=== PATIENT | male | born 1960 | race Asian ===

== ENCOUNTER 2018-12-23 12:01 | Observation (INO) | payer OTHER | END 2018-12-26 16:23 | disposition home or self-care (01) | LOC: ED 12:01 → DU 18:00 → ED 12:01 → DU 12-26 16:23 → ED 12:01 → DU 18:00 ==

== ENCOUNTER 2019-01-05 23:34 | Emergency (ER) | payer OTHER ==
[~2019-01-05] VITALS: Ht 152.4 cm; Wt 52.2 kg
[~2019-01-05 23:34] MED LIST: ALLOPURINOL100 MG PO; ATORVASTATIN CA10 M1 PO; D3 DOTS2000 UNIT PO; LOSARTAN POTASS25 M1 PO; METFORMIN HYDR500 M1 PO; TAMSULOSIN HYD0.4 M1 PO
[2019-01-05 23:37] VITALS: Ht 152.4 cm; Wt 52.2 kg
[2019-01-06 01:23] VITALS: BP 136/77
== END 2019-01-06 01:23 | disposition home or self-care (01) ==
LOC: ED 23:34
DX: S39.012A Strain of muscle, fascia and tendon of lower back, initial encounter (principal); R07.89 Other chest pain; I10 Essential (primary) hypertension; E11.9 Type 2 diabetes mellitus without complications; M10.9 Gout, unspecified; N40.0 Benign prostatic hyperplasia without lower urinary tract symptoms; X58.XXXA Exposure to other specified factors, initial encounter; Y93.89 Activity, other specified; Y92.89 Other specified places as the place of occurrence of the external cause; Y99.8 Other external cause status
CPT/HCPCS: 36415; J1885

== ENCOUNTER 2019-04-09 16:36 | Inpatient (IN) | payer OTHER ==
[~2019-04-09] VITALS: Ht 152.4 cm; Wt 48.5 kg
[~2019-04-09 16:36] MED LIST changes: +FLOMAX0.4 MG PO; -TAMSULOSIN HYD0.4 M1 PO
[2019-04-09 16:42] VITALS: Ht 152.4 cm; Wt 48.5 kg
[2019-04-09 17:33] LABS: BASOPHIL % 0.6 % (0-2); PLATELET COUNT 374 x10^3mcL (130-400); RED CELL DISTRIBUTION WIDTH 14.3 % (11.5-14.5)
[2019-04-09 17:42] LABS: CALCIUM 9.1 mg/dL (8.5-10.1); CARBON DIOXIDE 30.2 mmol/L (21-32); CHLORIDE SERUM 103 mmol/L (98-107); CREATININE SERUM 0.9 mg/dL (0.7-1.3); GFR1 > 60 mL/min; GLUCOSE SERUM 167 mg/dL (74-106); POTASSIUM SERUM 3.7 mmol/L (3.5-5.1); SODIUM SERUM 141 mmol/L (136-145)
[2019-04-09 17:46] LABS: ALBUMIN 3.4 g/dL (3.4-5.0); ALKALINE PHOSPHATASE 130 U/L (46-116); ALT/SGPT 36 U/L (16-63); AST/SGOT 21 U/L (15-37); BILIRUBIN TOTAL 0.3 mg/dL (0.20-1.00); TOTAL PROTEIN, SERUM 7.7 g/dL (6.4-8.2)
[2019-04-09] MEDS ORDERED: TRAMADOL HCL50 MG PO (19:15)
[2019-04-09] MEDS ORDERED: NITROGLYCERIN0.4 MG PO (19:15)
[2019-04-09] MEDS ORDERED: NITROGLYCERIN0.4 MG SL (19:15)
[2019-04-09] MEDS ORDERED: LIPI20 PO (19:17)
[2019-04-09] MEDS ORDERED: ISORDIL TITRADOS5 M1 PO (19:17)
[2019-04-09 22:45] VITALS: BP 123/64
[2019-04-10 03:30] VITALS: BP 111/63
[2019-04-10 04:57] VITALS: BP 100/58
[2019-04-10 08:24] VITALS: BP 107/65
[2019-04-10 12:08] VITALS: BP 97/57
[2019-04-10 17:13] VITALS: BP 100/63
[2019-04-10 17:29] VITALS: BP 100/63
== END 2019-04-10 18:33 | disposition home or self-care (01) | DRG 313 ==
LOC: ED 16:36 → DU 21:13
PROVIDERS: Emergency Medicine; ADMIT Internal Medicine Pulmonary Disease
DX: R07.89 Other chest pain (principal); E11.9 Type 2 diabetes mellitus without complications; I10 Essential (primary) hypertension; E78.5 Hyperlipidemia, unspecified; N40.0 Benign prostatic hyperplasia without lower urinary tract symptoms; F17.200 Nicotine dependence, unspecified, uncomplicated
CPT/HCPCS: 83880; 85378; 99406; G0378; J2270; J3010; Q0092

== ENCOUNTER 2019-05-12 17:01 | Observation (INO) | payer OTHER ==
[~2019-05-12] VITALS: Ht 152.4 cm; Wt 48.6 kg
[~2019-05-12 17:01] MED LIST changes: +ISORDIL TITRADOS5 M1 PO; +LIPI20 PO; +NITROGLYCERIN0.4 MG PO; +NITROGLYCERIN0.4 MG SL; +TRAMADOL HCL50 MG PO
[2019-05-12 17:09] VITALS: Ht 152.4 cm; Wt 48.6 kg
--- NOTE | 2019-05-12 17:13 | NUR ---
EKG IN PROGRESS
--- NOTE | 2019-05-12 19:13 | NUR ---
PER PT HE HAS HAD CHEST "PRESSURE" FOR ON MONTH OFF AND ON. PT STS THAT THE PAIN IS IN HIS STERNUM AND RADIATED TO HIS LEFT UPPER BACK. PT DENEIS ANY NUMBNESS OR TINGLING. PT STS THAT HE HAS SOME LUQ/LLQ PAIN FOR ON MONTH. PT DENIES ANY NASUEA OR VOMITING. NO NEUROLOGICAL DEFICITS NOTED. +BOWEL SOUNDS ALL 4 QUAD. PT PLACED ON FULL CM. VSS. NO DISTRESS NTOED. WILL CONTINUE TO MONITOR.
--- NOTE | 2019-05-12 19:17 | NUR ---
DR. SALCEDO AT BEDSIDE FOR MSE.
--- NOTE | 2019-05-12 19:26 | NUR ---
DLAB AT BEDSIDE.
[2019-05-12 19:49] LABS: BASOPHIL % 0.5 % (0-2); RED CELL DISTRIBUTION WIDTH 14.1 % (11.5-14.5)
[2019-05-12 19:54] LABS: PLATELET COUNT 405 x10^3mcL (130-400)
[2019-05-12 19:57] LABS: CALCIUM 9.2 mg/dL (8.5-10.1); CARBON DIOXIDE 25.1 mmol/L (21-32); CHLORIDE SERUM 100 mmol/L (98-107); GFR1 > 60 mL/min; GLUCOSE SERUM 108 mg/dL (74-106); POTASSIUM SERUM 3.9 mmol/L (3.5-5.1); SODIUM SERUM 137 mmol/L (136-145)
[2019-05-12 20:01] LABS: ALKALINE PHOSPHATASE 160 U/L (46-116); ALT/SGPT 30 U/L (16-63); AST/SGOT 15 U/L (15-37); BILIRUBIN TOTAL 0.28 mg/dL (0.20-1.00); TOTAL PROTEIN, SERUM 8.2 g/dL (6.4-8.2)
[2019-05-12 20:02] LABS: ALBUMIN 3.3 g/dL (3.4-5.0)
--- NOTE | 2019-05-12 20:10 | NUR ---
FPT STS THAT HE STARTED TO HAVE CHEST PRESSURE AGAIN. PT GIVEN 2ND NITRO DR. SALCEDO INFORMED.
--- NOTE | 2019-05-12 21:25 | NUR ---
PT IN POSITION OF COMFORT. VSS. NO DISTRESS NOTED WILL CONTINUE TO MONITOR.
[2019-05-12] MEDS ORDERED: KLOR-CON M1010 MEQ PO (23:08)
[2019-05-12] MEDS ORDERED: ASPIR 8181 MG PO (23:08)
[2019-05-12 23:46] VITALS: BP 103/61
[2019-05-12 23:56] VITALS: BP 103/61
--- NOTE | 2019-05-13 | NUR ---
RECEIVED PT FROM ED VIA ANTONIO. ORIENTED PT TO ROOM AND SURROUNDINGS. IV NOTED TO LFA PATENT AND INTACT. TELE 3 PLACED ON PT READING SR. INSTRUCTED PT ON THE USE OF CALL LIGHT FOR ASSISTANCE. ENDORSED PT TO PRIMARY NURSE LEAH
--- NOTE | 2019-05-13 00:07 | NUR ---
RECEIVED REPORT FROM SURU RN FOR CONTINUATION OF CARE. AWAKE, ALERT, ORIENTED X4. RESPIRATION EVEN AND UNLABORED, ON ROOM AIR. DENIES PAIN AT THIS TIME. WILL CONTINUE TO MONITOR.
--- NOTE | 2019-05-13 03:39 | NUR ---
PATIENT COMPLAINED OF HEADACHE AND BACK PAIN, PS 7/10. MEDICATED WITH ULTRAM 50 MG PO ORDERED. WILL CONTINUE TO MONITOR.
--- NOTE | 2019-05-13 05:51 | NUR ---
SPOT CHECK BLOOD SUGAR 126 MG/DL.
--- NOTE | 2019-05-13 05:59 | NUR ---
PATIENT AWAKE IN BED. RESPIRATION EVEN AND UNLABORED, ON ROOM AIR. SALINE LOCK TO LEFT ANTECUBITAL AREA PATENT AND INTACT. ASSISTED WITH NEEDS. SAFETY OBSERVED. PLACED BED IN THE LOWEST POSITION. PLACED CALL LIGHT WITHIN REACH AT ALL TIMES.
[2019-05-13 06:07] VITALS: BP 118/66
--- NOTE | 2019-05-13 07:10 | NUR ---
RECEIVED PT FROM PANTOGRAPH II ENGRAVER NURSE. PT RESTING IN BED, AOX4, RESP E/U ON RA. REQUESTED FOR PAIN MEDS AT THIS TIME FOR BACK PAIN. WILL CARRY OUT MED ORDERS PER EMAR, COMFORT MEASURES IMPLEMENTED. ON TELE 3 SHOWING NSR, HR: 71. SALINE LOCKED TO LFA W/ NO ERYTHEMA OR EDEMA. BED IN LOWEST POSITION AND CALL LIGHT WITHIN REACH. WILL CONTINUE TO MONITOR.
[2019-05-13 07:35] VITALS: BP 121/67
[2019-05-13 07:58] LABS: CHOLESTEROL/HDL RATIO 6.5
[2019-05-13 11:45] VITALS: BP 125/70
--- NOTE | 2019-05-13 12:45 | NUR ---
PT RESTING IN BED, AOX4, RESP E/U ON RA. C/O MILD PAIN ABD AND BACK PAIN BUT TOLERABLE, NO REQUEST FOR PAIN MEDS AT THIS TIME, OTHERWISE NO ACUTE DISTRESS NOTED. COMFORT MEASURES IMPLEMENTED. BED IN LOWEST POSITION AND CALL LIGHT WITHIN REACH. WILL CONTINUE TO MONITOR.
[2019-05-13 16:32] VITALS: BP 125/70
[2019-05-13 17:00] VITALS: BP 106/60
--- NOTE | 2019-05-13 17:50 | NUR ---
PT SITTING UPRIGHT IN BED HAVING DINNER, AOX4, RESP E/U ON RA. PT DENIES PAIN AT THIS TIME, NO ACUTE DISTRESS NOTED. SALINE LOCK TO LFA W/ NO ERYTHEMA OR EDEMA. BED IN LOWEST POSITION AND CALL LIGHT WITHIN REACH. WILL ENDORSE TO ONCOMING NURSE.
--- NOTE | 2019-05-13 19:35 | NUR ---
RECEIVED PT FROM PREVIOUS SHIFT. AAO. TELE #3 SHOWING NSR. DENIES CP. DENIES PALPITATIONS. ABLE TO MAKE NEEDS KNOWN. BREATHING E/U ON RA. C/O 05/27 ACHING ABD PAIN, WILL MEDICATE PER EMAR. NO C/O N/V. ABD FIRM/ROUND. NO S/S ACUTE DISTRESS. IV SITE CDI, NO ERYTHEMA OR EDEMA. CALL LIGHT WITHIN REACH. SAFETY MEASURES IN PLACE. WILL CONTINUE TO MONITOR.
[2019-05-13 20:16] VITALS: BP 109/66
--- NOTE | 2019-05-13 20:30 | NUR ---
PAGED DR. SALOMON, PT CONCERNED REGARDING PLANS TO DISCHARGE TODAY SINCE PT IS STILL EXPERIENCING "A LOT OF PAIN", PT STATES HE WILL BE UNABLE TO MOVE DOWNSTAIRS DUE TO PAIN.
--- NOTE | 2019-05-13 20:35 | NUR ---
SPOKE TO DR. CRUZ REGARDING DISCHARGE PLANS AND PT CONCERNS REGARDING BEING DISCHARGED WHILE STILL HAVING PAIN, PER DR. CRUZ, OK FOR PT TO STAY ANOTHER NIGHT.
--- NOTE | 2019-05-13 23:47 | NUR ---
MEDICATED PER EMAR FOR 03/27 ABD PAIN. NO S/S ACUTE DISTRESS. BREATHING E/U ON RA. CALL LIGHT WITHIN REACH. SAFETY MEASURES IN PLACE. WILL CONTINUE TO MONITOR.
[2019-05-14 05:16] VITALS: BP 115/64
--- NOTE | 2019-05-14 05:16 | NUR ---
PT C/O 04/26 ACHING ABD AND BACK PAIN, STATES ULTRAM IS EFFECTIVE IN PAIN CONTROL, MEDICATED PER EMAR.
--- NOTE | 2019-05-14 05:21 | NUR ---
PT C/O 04/26 BACK PAIN, MEDICATED PER EMAR.
[2019-05-14 06:48] LABS: CALCIUM 9.5 mg/dL (8.5-10.1); CARBON DIOXIDE 26.5 mmol/L (21-32); CHLORIDE SERUM 100 mmol/L (98-107); CREATININE SERUM 0.8 mg/dL (0.7-1.3); GFR1 > 60 mL/min; GLUCOSE SERUM 114 mg/dL (74-106); MAGNESIUM 2.1 mg/dL (1.8-2.4); POTASSIUM SERUM 3.9 mmol/L (3.5-5.1); SODIUM SERUM 136 mmol/L (136-145)
--- NOTE | 2019-05-14 07:03 | NUR ---
RECEIVED PT FROM HEEL CEMENTER MACHINE NURSE. PT RESTING IN BED, AOX4, RESP E/U ON RA. REPORTED L CHEST/ABD PAIN RATED 7/10, DENIES SOB OR NAUSEA. WILL CARRY OUT MED ORDERS PER EMAR, COMFORT MEASURES IMPLEMENTED. ON TELE 16 SHOWING NSR, HR: 72. SALINE LOCKED TO RAC W/ NO ERYTHEMA OR EDEMA. BED IN LOWEST POSITION AND CALL LIGHT WITHIN REACH. WILL CONTINUE TO MONITOR.
[2019-05-14 07:09] LABS: BASOPHIL % 0.8 % (0-2); PLATELET COUNT 360 x10^3mcL (130-400); RED CELL DISTRIBUTION WIDTH 14.4 % (11.5-14.5)
[2019-05-14 08:39] VITALS: BP 116/69
--- NOTE | 2019-05-14 12:10 | NUR ---
PT RESTING IN BED, AOX4, RESP E/U ON RA. C/O L FLANK AND BACK PAIN. MEDICATED ORDERED PER EMAR, COMFORT MEASURES IMPLEMENTED. BED IN LOWEST POSITION AND CALL LIGHT WITHIN REACH. WILL CONTINUE TO MONITOR.
[2019-05-14 13:22] VITALS: BP 99/60
[2019-05-14 14:36] VITALS: BP 99/60
--- NOTE | 2019-05-14 15:20 | NUR ---
PT DISCHARGED. REVIEWED VISIT SUMMARY, EDUCATIONAL PACKET, AND FOLLOW UP INSTRUCTIONS W/ PT. PT AOX4, RESP E/U, VS STABLE, DENIES PAIN AT THIS TIME. IV TO LFA REMOVED, CATH INTACT, GAUZE DRESSING APPLIED. PT AMBULATORY TO LOBBY, ESCORTED TO LOBBY BY INNA FINK W/ NO ACUTE INCIDENCE.
== END 2019-05-14 15:15 | disposition home or self-care (01) | DRG 313 ==
LOC: ED 17:01 → DU 22:13
PROVIDERS: Emergency Medicine; Internal Medicine Pulmonary Disease; ADMIT Internal Medicine Pulmonary Disease
DX: R07.89 Other chest pain (principal); I10 Essential (primary) hypertension; E11.9 Type 2 diabetes mellitus without complications; E78.5 Hyperlipidemia, unspecified; N40.0 Benign prostatic hyperplasia without lower urinary tract symptoms; M10.9 Gout, unspecified; F17.211 Nicotine dependence, cigarettes, in remission
CPT/HCPCS: 82962; G0378; J1650; J2270; Q0092; Q9967

== ENCOUNTER 2019-07-10 10:28 | Emergency (ER) | payer OTHER ==
[~2019-07-10] VITALS: Ht 154.9 cm; Wt 42.6 kg
[~2019-07-10 10:28] MED LIST changes: +ASPIR 8181 MG PO; +KLOR-CON M1010 MEQ PO
[2019-07-10 10:30] VITALS: Ht 154.9 cm; Wt 42.6 kg
[2019-07-10 11:18] LABS: BASOPHIL % 0.7 % (0-2); RED CELL DISTRIBUTION WIDTH 14.3 % (11.5-14.5)
[2019-07-10 11:26] LABS: CALCIUM 9.8 mg/dL (8.5-10.1); CARBON DIOXIDE 25.9 mmol/L (21-32); CHLORIDE SERUM 97 mmol/L (98-107); CREATININE SERUM 0.8 mg/dL (0.7-1.3); GFR1 > 60 mL/min; GLUCOSE SERUM 122 mg/dL (74-106); PLATELET COUNT 463 x10^3mcL (130-400); SODIUM SERUM 135 mmol/L (136-145)
[2019-07-10 11:30] LABS: ALKALINE PHOSPHATASE 196 U/L (46-116); ALT/SGPT 40 U/L (16-63); AST/SGOT 27 U/L (15-37); BILIRUBIN TOTAL 0.5 mg/dL (0.20-1.00); CHOLESTEROL 198 mg/dL (<200); HDL CHOLESTEROL 41 mg/dL (40-60); PHOSPHOROUS 4.5 mg/dL (2.5-4.9); URIC ACID 3.4 mg/dL (3.5-7.2)
[2019-07-10 11:31] LABS: ALBUMIN 2.9 g/dL (3.4-5.0); TOTAL PROTEIN, SERUM 8.8 g/dL (6.4-8.2)
[2019-07-10] MEDS ORDERED: GABAPENTIN100 M2 PO (12:04)
[2019-07-10 18:22] VITALS: BP 126/78
== END 2019-07-10 18:22 | disposition short-term general hospital (02) ==
LOC: ED 10:28
PROVIDERS: Emergency Medicine
DX: J98.4 Other disorders of lung (principal); I10 Essential (primary) hypertension; E11.9 Type 2 diabetes mellitus without complications; E78.00 Pure hypercholesterolemia, unspecified
CPT/HCPCS: J2270; J2405; J7620

== ENCOUNTER 2019-08-12 21:36 | Inpatient (IN) | payer OTHER ==
[~2019-08-12] VITALS: Ht 152.4 cm; Wt 41.4 kg
[~2019-08-12 21:36] MED LIST changes: +GABAPENTIN100 M2 PO
[2019-08-12 22:05] LABS: BASOPHIL % 0.5 % (0-2)
[2019-08-12 22:07] LABS: PLATELET COUNT 620 x10^3mcL (130-400)
[2019-08-12 22:17] LABS: CALCIUM 9.6 mg/dL (8.5-10.1); CARBON DIOXIDE 28.4 mmol/L (21-32); CHLORIDE SERUM 95 mmol/L (98-107); CREATININE SERUM 0.8 mg/dL (0.7-1.3); GFR1 > 60 mL/min; GLUCOSE SERUM 115 mg/dL (74-106); POTASSIUM SERUM 3.6 mmol/L (3.5-5.1); SODIUM SERUM 136 mmol/L (136-145)
[2019-08-12 22:22] LABS: ALKALINE PHOSPHATASE 168 U/L (46-116); ALT/SGPT 33 U/L (16-63); AST/SGOT 23 U/L (15-37); BILIRUBIN TOTAL 0.36 mg/dL (0.20-1.00)
[2019-08-12 22:23] LABS: TOTAL PROTEIN, SERUM 8.9 g/dL (6.4-8.2)
[2019-08-13] VITALS (8 sets, daily range): BP systolic 100–124; BP diastolic 59–81
[2019-08-13 00:42] LABS: microscopic required? YES; urine erythrocyte NEGATIVE (NEGATIVE)
[2019-08-13 07:21] LABS: CALCIUM 8.8 mg/dL (8.5-10.1); CARBON DIOXIDE 24.4 mmol/L (21-32); CHLORIDE SERUM 99 mmol/L (98-107); GFR1 > 60 mL/min; GLUCOSE SERUM 182 mg/dL (74-106); POTASSIUM SERUM 4.1 mmol/L (3.5-5.1); SODIUM SERUM 134 mmol/L (136-145)
[2019-08-13 07:41] LABS: BASOPHIL % 0.3 % (0-2)
[2019-08-13 08:13] LABS: PLATELET COUNT 612 x10^3mcL (130-400)
[2019-08-14 05:46] VITALS: BP 107/72
[2019-08-14 07:16] LABS: ALKALINE PHOSPHATASE 130 U/L (46-116); ALT/SGPT 48 U/L (16-63); AST/SGOT 37 U/L (15-37); BILIRUBIN TOTAL 0.11 mg/dL (0.20-1.00); CALCIUM 8.6 mg/dL (8.5-10.1); CARBON DIOXIDE 26.3 mmol/L (21-32); CHLORIDE SERUM 104 mmol/L (98-107); CREATININE SERUM 0.7 mg/dL (0.7-1.3); GFR1 > 60 mL/min; GLUCOSE SERUM 112 mg/dL (74-106); MAGNESIUM 2.1 mg/dL (1.8-2.4); POTASSIUM SERUM 3.7 mmol/L (3.5-5.1); SODIUM SERUM 141 mmol/L (136-145); TOTAL PROTEIN, SERUM 7.4 g/dL (6.4-8.2)
[2019-08-14 07:17] LABS: ALBUMIN 2.4 g/dL (3.4-5.0)
[2019-08-14 07:43] LABS: BASOPHIL % 0.3 % (0-2)
[2019-08-14 09:17] VITALS: BP 116/72
[2019-08-14 10:16] LABS: PLATELET COUNT 592 x10^3mcL (130-400)
[2019-08-14 12:15] VITALS: BP 147/70
[2019-08-14 17:20] VITALS: BP 120/73
[2019-08-14 20:06] VITALS: BP 120/78
[2019-08-15 05:15] VITALS: BP 105/65
[2019-08-15 06:26] LABS: CALCIUM 9.2 mg/dL (8.5-10.1); CARBON DIOXIDE 28.6 mmol/L (21-32); CHLORIDE SERUM 100 mmol/L (98-107); CREATININE SERUM 0.6 mg/dL (0.7-1.3); GFR1 > 60 mL/min; GLUCOSE SERUM 150 mg/dL (74-106); POTASSIUM SERUM 4.5 mmol/L (3.5-5.1); SODIUM SERUM 137 mmol/L (136-145)
[2019-08-15 06:34] LABS: RED CELL DISTRIBUTION WIDTH 15.4 % (11.5-14.5)
[2019-08-15 06:35] LABS: BASOPHIL % 0 % (0-2)
[2019-08-15 08:24] LABS: PLATELET COUNT 613 x10^3mcL (130-400)
[2019-08-15 08:54] VITALS: BP 140/72
[2019-08-15 12:11] VITALS: BP 124/73
[2019-08-15] MEDS ORDERED: PREDNISONE20 MG PO ×2 (13:12→13:18)
[2019-08-15] MEDS ORDERED: ZITHROMAX TRI-500 MG PO ×2 (13:14→13:18)
[2019-08-15 13:21] VITALS: BP 124/73
== END 2019-08-15 15:30 | disposition home or self-care (01) | DRG 190 ==
LOC: ED 21:36 → DU 08-13 00:37
PROVIDERS: Emergency Medicine; Internal Medicine Nephrology; Internal Medicine Pulmonary Disease; ADMIT Internal Medicine Pulmonary Disease
DX: J44.1 Chronic obstructive pulmonary disease with (acute) exacerbation (principal); J18.9 Pneumonia, unspecified organism; M54.5 Low back pain; E11.9 Type 2 diabetes mellitus without complications; I10 Essential (primary) hypertension; M10.9 Gout, unspecified; N40.0 Benign prostatic hyperplasia without lower urinary tract symptoms; E78.5 Hyperlipidemia, unspecified; Z87.891 Personal history of nicotine dependence; Z79.84 Long term (current) use of oral hypoglycemic drugs; Z98.1 Arthrodesis status
CPT/HCPCS: 82962; 83880; 97116-GP; 97530-GP; C9113; G0378; J0456; J0696; J1885; J2270; J2920; J2930; J3490; J7050; J7060; J7620; Q0092

== ENCOUNTER 2019-08-21 21:48 | Inpatient (IN) | payer SELFPAY ==
[~2019-08-21] VITALS: Ht 152.4 cm; Wt 45.1 kg
[~2019-08-21 21:48] MED LIST changes: +PREDNISONE20 MG PO; +ZITHROMAX TRI-500 MG PO
[2019-08-21 21:52] VITALS: Ht 152.4 cm; Wt 45.1 kg
[2019-08-21 22:58] LABS: CALCIUM 8.9 mg/dL (8.5-10.1); CARBON DIOXIDE 28.5 mmol/L (21-32); CHLORIDE SERUM 100 mmol/L (98-107); CREATININE SERUM 0.7 mg/dL (0.7-1.3); GFR1 > 60 mL/min; GLUCOSE SERUM 132 mg/dL (74-106); POTASSIUM SERUM 3.2 mmol/L (3.5-5.1); SODIUM SERUM 139 mmol/L (136-145)
[2019-08-21 22:59] LABS: BASOPHIL % 0.6 % (0-2)
[2019-08-21 23:09] LABS: ALBUMIN 2.9 g/dL (3.4-5.0); ALKALINE PHOSPHATASE 171 U/L (46-116); ALT/SGPT 124 U/L (16-63); AST/SGOT 46 U/L (15-37); BILIRUBIN TOTAL 0.2 mg/dL (0.20-1.00); C REACTIVE PROTEIN 3.1 mg/dL (<=0.9); TOTAL PROTEIN, SERUM 8.4 g/dL (6.4-8.2)
[2019-08-21 23:13] LABS: PLATELET COUNT 723 x10^3mcL (130-400); RED CELL DISTRIBUTION WIDTH 15.6 % (11.5-14.5)
[2019-08-21 23:15] LABS: T3 TOTAL 0.98 ng/mL
[2019-08-21 23:31] LABS: FREE T4 1.21 ng/dL (0.76-1.46); FREE THYROXINE INDEX 3.7 ug/dL (1.4-4.5); T4(THYROXINE) 9.4 ug/dL (4.7-13.3)
[2019-08-22] VITALS (7 sets, daily range): BP systolic 109–141; BP diastolic 59–73
[2019-08-22 00:11] LABS: ERYTHROCYTE SED RATE 87 mm/hr (0-20)
[2019-08-22 00:16] LABS: CK-MB 0.5 ng/mL (0-3.6)
[2019-08-22 00:26] LABS: UA SPECIFIC GRAVITY 1.025 (1.005-1.035); microscopic required? YES; urine erythrocyte NEGATIVE (NEGATIVE)
[2019-08-22 00:32] LABS: MAGNESIUM 2.2 mg/dL (1.8-2.4); PHOSPHOROUS 4.1 mg/dL (2.5-4.9)
[2019-08-22 00:39] LABS: AMPHETAMINE QUAL UR NONE DETECTED (See below)
[2019-08-22 07:39] LABS: BASOPHIL % 0 % (0-2); PLATELET COUNT 641 x10^3mcL (130-400); RED CELL DISTRIBUTION WIDTH 15.7 % (11.5-14.5)
[2019-08-22 08:13] LABS: CALCIUM 8.8 mg/dL (8.5-10.1); CARBON DIOXIDE 28.5 mmol/L (21-32); CHLORIDE SERUM 100 mmol/L (98-107); CREATININE SERUM 0.8 mg/dL (0.7-1.3); GFR1 > 60 mL/min; GLUCOSE SERUM 151 mg/dL (74-106); MAGNESIUM 2.4 mg/dL (1.8-2.4); PHOSPHOROUS 4.2 mg/dL (2.5-4.9); POTASSIUM SERUM 4.4 mmol/L (3.5-5.1); SODIUM SERUM 138 mmol/L (136-145)
[2019-08-23 05:50] VITALS: BP 134/93
[2019-08-23 06:24] LABS: BASOPHIL % 0.1 % (0-2)
[2019-08-23 06:56] LABS: CALCIUM 8.5 mg/dL (8.5-10.1); CARBON DIOXIDE 27.2 mmol/L (21-32); CHLORIDE SERUM 103 mmol/L (98-107); CREATININE SERUM 0.8 mg/dL (0.7-1.3); GFR1 > 60 mL/min; GLUCOSE SERUM 139 mg/dL (74-106); POTASSIUM SERUM 3.3 mmol/L (3.5-5.1); SODIUM SERUM 140 mmol/L (136-145)
[2019-08-23 06:58] LABS: RED CELL DISTRIBUTION WIDTH 15.5 % (11.5-14.5)
[2019-08-23 06:59] LABS: PLATELET COUNT 637 x10^3mcL (130-400)
[2019-08-23 08:12] VITALS: BP 140/74
[2019-08-23 11:37] VITALS: BP 110/64
[2019-08-23 16:02] VITALS: BP 115/73
[2019-08-23 20:44] VITALS: BP 121/76
[2019-08-24 04:57] VITALS: BP 107/71
[2019-08-24 06:34] LABS: BASOPHIL % 0.3 % (0-2)
[2019-08-24 06:55] LABS: CARBON DIOXIDE 28.6 mmol/L (21-32); CHLORIDE SERUM 100 mmol/L (98-107); CREATININE SERUM 0.8 mg/dL (0.7-1.3); GFR1 > 60 mL/min; GLUCOSE SERUM 130 mg/dL (74-106); POTASSIUM SERUM 4.3 mmol/L (3.5-5.1); SODIUM SERUM 139 mmol/L (136-145)
[2019-08-24 08:13] VITALS: BP 100/64
[2019-08-24 08:15] LABS: PLATELET COUNT 663 x10^3mcL (130-400)
[2019-08-24 11:39] VITALS: BP 102/75
[2019-08-24 15:17] VITALS: BP 102/75
[2019-08-24 15:51] VITALS: BP 109/70
[2019-08-24 21:36] VITALS: BP 114/66
[2019-08-25 06:26] VITALS: BP 117/75
[2019-08-25 07:20] LABS: BASOPHIL % 0.2 % (0-2)
[2019-08-25 07:49] LABS: CALCIUM 9.2 mg/dL (8.5-10.1); CARBON DIOXIDE 26.7 mmol/L (21-32); CHLORIDE SERUM 98 mmol/L (98-107); CREATININE SERUM 0.9 mg/dL (0.7-1.3); GFR1 > 60 mL/min; GLUCOSE SERUM 127 mg/dL (74-106); LACTIC DEHYDROGENASE (LDH) 295 U/L (100-190); POTASSIUM SERUM 4.3 mmol/L (3.5-5.1); SODIUM SERUM 135 mmol/L (136-145)
[2019-08-25 07:52] LABS: PLATELET COUNT 583 x10^3mcL (130-400); RED CELL DISTRIBUTION WIDTH 16.1 % (11.5-14.5)
[2019-08-25 08:23] VITALS: BP 113/71
[2019-08-25 12:06] VITALS: BP 115/74
[2019-08-25 20:59] VITALS: BP 104/65
[2019-08-26 06:41] VITALS: BP 107/70
[2019-08-26 07:00] LABS: BASOPHIL % 0.2 % (0-2)
[2019-08-26 07:12] LABS: PLATELET COUNT 593 x10^3mcL (130-400); RED CELL DISTRIBUTION WIDTH 16.3 % (11.5-14.5)
[2019-08-26 07:17] LABS: CALCIUM 9.6 mg/dL (8.5-10.1); CARBON DIOXIDE 28.6 mmol/L (21-32); CHLORIDE SERUM 96 mmol/L (98-107); CREATININE SERUM 0.9 mg/dL (0.7-1.3); GFR1 > 60 mL/min; GLUCOSE SERUM 143 mg/dL (74-106); POTASSIUM SERUM 4.2 mmol/L (3.5-5.1); SODIUM SERUM 135 mmol/L (136-145)
[2019-08-26 08:51] VITALS: BP 98/67
[2019-08-26 12:11] VITALS: BP 118/62
[2019-08-26 16:43] VITALS: BP 98/62
[2019-08-26 20:30] VITALS: BP 129/74
[2019-08-27 05:40] VITALS: BP 105/71
[2019-08-27 07:21] LABS: BASOPHIL % 0.2 % (0-2)
[2019-08-27 07:34] LABS: PLATELET COUNT 558 x10^3mcL (130-400); RED CELL DISTRIBUTION WIDTH 15.9 % (11.5-14.5)
[2019-08-27 07:48] LABS: CALCIUM 8.7 mg/dL (8.5-10.1); CARBON DIOXIDE 27.1 mmol/L (21-32); CHLORIDE SERUM 98 mmol/L (98-107); GFR1 > 60 mL/min; GLUCOSE SERUM 140 mg/dL (74-106); MAGNESIUM 2.2 mg/dL (1.8-2.4); PHOSPHOROUS 3.7 mg/dL (2.5-4.9); POTASSIUM SERUM 3.8 mmol/L (3.5-5.1); SODIUM SERUM 136 mmol/L (136-145)
[2019-08-27 09:11] VITALS: BP 125/72
[2019-08-27 16:29] VITALS: BP 118/66
[2019-08-27 21:07] VITALS: BP 103/67
[2019-08-28 05:51] VITALS: BP 155/86
[2019-08-28 06:49] LABS: BASOPHIL % 0.3 % (0-2)
[2019-08-28 07:12] LABS: CALCIUM 8.4 mg/dL (8.5-10.1); CARBON DIOXIDE 26.6 mmol/L (21-32); CHLORIDE SERUM 102 mmol/L (98-107); CREATININE SERUM 1.1 mg/dL (0.7-1.3); GFR1 > 60 mL/min; GLUCOSE SERUM 130 mg/dL (74-106); MAGNESIUM 2.1 mg/dL (1.8-2.4); POTASSIUM SERUM 3.8 mmol/L (3.5-5.1); SODIUM SERUM 140 mmol/L (136-145)
[2019-08-28 08:59] LABS: PLATELET COUNT 558 x10^3mcL (130-400)
[2019-08-28 09:25] VITALS: BP 110/73
[2019-08-28 13:02] VITALS: BP 123/76
[2019-08-28 17:02] VITALS: BP 135/72
[2019-08-28 20:28] VITALS: BP 122/74
[2019-08-29 05:04] VITALS: BP 127/72
[2019-08-29 07:05] LABS: BASOPHIL % 0.4 % (0-2)
[2019-08-29 07:10] LABS: CALCIUM 8.7 mg/dL (8.5-10.1); CARBON DIOXIDE 24.4 mmol/L (21-32); CHLORIDE SERUM 103 mmol/L (98-107); CREATININE SERUM 0.8 mg/dL (0.7-1.3); GFR1 > 60 mL/min; GLUCOSE SERUM 149 mg/dL (74-106); POTASSIUM SERUM 3.7 mmol/L (3.5-5.1); SODIUM SERUM 138 mmol/L (136-145)
[2019-08-29 07:31] VITALS: BP 132/72
[2019-08-29 07:42] LABS: RED CELL DISTRIBUTION WIDTH 16.1 % (11.5-14.5)
[2019-08-29 08:46] LABS: PLATELET COUNT 553 x10^3mcL (130-400)
[2019-08-29 11:36] VITALS: BP 122/71
[2019-08-29 13:36] VITALS: BP 122/71
[2019-08-29 17:46] VITALS: BP 131/79
[2019-08-29 20:04] VITALS: BP 140/71
[2019-08-30 05:38] VITALS: BP 104/64
[2019-08-30 06:28] LABS: BASOPHIL % 0.4 % (0-2); CALCIUM 9.1 mg/dL (8.5-10.1); CARBON DIOXIDE 24.3 mmol/L (21-32); CHLORIDE SERUM 101 mmol/L (98-107); CREATININE SERUM 0.9 mg/dL (0.7-1.3); GFR1 > 60 mL/min; GLUCOSE SERUM 138 mg/dL (74-106); POTASSIUM SERUM 4.3 mmol/L (3.5-5.1); SODIUM SERUM 138 mmol/L (136-145)
[2019-08-30 06:42] LABS: RED CELL DISTRIBUTION WIDTH 16.4 % (11.5-14.5)
[2019-08-30 07:44] LABS: PLATELET COUNT 591 x10^3mcL (130-400)
[2019-08-30 09:00] VITALS: BP 107/65
[2019-08-30 11:55] VITALS: BP 106/67
[2019-08-30 17:03] VITALS: BP 116/68
[2019-08-30 20:46] VITALS: BP 135/75
[2019-08-31 04:19] VITALS: BP 143/75
[2019-08-31 06:59] LABS: BASOPHIL % 0.5 % (0-2)
[2019-08-31 07:24] LABS: CALCIUM 8.7 mg/dL (8.5-10.1); CARBON DIOXIDE 24.1 mmol/L (21-32); CHLORIDE SERUM 103 mmol/L (98-107); CREATININE SERUM 0.8 mg/dL (0.7-1.3); GFR1 > 60 mL/min; GLUCOSE SERUM 144 mg/dL (74-106); POTASSIUM SERUM 4.2 mmol/L (3.5-5.1); SODIUM SERUM 138 mmol/L (136-145)
[2019-08-31 07:58] LABS: PLATELET COUNT 535 x10^3mcL (130-400); RED CELL DISTRIBUTION WIDTH 16.6 % (11.5-14.5)
[2019-08-31 08:54] VITALS: BP 142/79
[2019-08-31 13:32] VITALS: BP 112/74
[2019-08-31] MEDS ORDERED: LEVAQUIN750 MG PO (13:36)
[2019-08-31] MEDS ORDERED: CLEOCIN HCL300 MG PO (13:41)
[2019-08-31] MEDS ORDERED: DIL4 PO (14:35)
[2019-08-31] MEDS ORDERED: DILAUDID4 MG PO (15:00)
[2019-08-31 16:26] VITALS: BP 133/70
== END 2019-08-31 17:47 | disposition home or self-care (01) | DRG 871 ==
LOC: ED 21:48 → DU 23:50 → MU 08-30 10:26
PROVIDERS: Internal Medicine; Specialist; ADMIT Internal Medicine
DX: A41.9 Sepsis, unspecified organism (principal); J18.9 Pneumonia, unspecified organism; N17.0 Acute kidney failure with tubular necrosis; J44.0 Chronic obstructive pulmonary disease with (acute) lower respiratory infection; J44.1 Chronic obstructive pulmonary disease with (acute) exacerbation; C34.92 Malignant neoplasm of unspecified part of left bronchus or lung; I10 Essential (primary) hypertension; N40.0 Benign prostatic hyperplasia without lower urinary tract symptoms; M10.9 Gout, unspecified; E78.00 Pure hypercholesterolemia, unspecified; E87.6 Hypokalemia; E11.65 Type 2 diabetes mellitus with hyperglycemia; D47.3 Essential (hemorrhagic) thrombocythemia; R74.0 Nonspecific elevation of levels of transaminase and lactic acid dehydrogenase [LDH]; F11.10 Opioid abuse, uncomplicated; E78.5 Hyperlipidemia, unspecified; G89.29 Other chronic pain; M54.9 Dorsalgia, unspecified; Z98.1 Arthrodesis status; Z79.84 Long term (current) use of oral hypoglycemic drugs; Z87.891 Personal history of nicotine dependence; Z87.01 Personal history of pneumonia (recurrent); Z79.899 Other long term (current) drug therapy
CPT/HCPCS: 36600; 82962; 83880; 84439; 87804; 94150; 97110-GP; 97530-GP; G0378; J1815; J1885; J2270; J2543; J2930; J3370; J7030; J7050; J7613; J7620; J7644; Q0092; Q9967

== ENCOUNTER 2019-09-12 12:46 | Inpatient (IN) | payer OTHER ==
[~2019-09-12] VITALS: Ht 167.6 cm; Wt 44.0 kg
[~2019-09-12 12:46] MED LIST changes: +CLEOCIN HCL300 MG PO; +DIL4 PO; +DILAUDID4 MG PO; +LEVAQUIN750 MG PO
[2019-09-12 12:53] VITALS: Ht 167.6 cm; Wt 44.0 kg
--- NOTE | 2019-09-12 13:09 | NUR ---
EKG IN PROG
--- NOTE | 2019-09-12 13:24 | NUR ---
PT PRESENTS TO THE ED TODAY WITH C/C OF SOB AND CONGESTION. PT REPORTS THAT HE HAS STAGE 4 LUNG CANCER AND WAS RECENTLY ADMITTED HERE FOR PNEUMONIA AND COPD. PT IS VERY SOFT SPOKEN, REPORTS CHEST DISCOMFORT WITH HIS DEEP BREATHING. PT ONLY ABLE TO SPEAK IN SHORT 1-3 WORD SENTENCES. PT IS AWAKE AND ALERT, PLACED ON FULL ENVIRONMENTAL LEAD, MSE COMPLETED BY DR GRACE. WILL CONTINUE TO MONITOR.
--- NOTE | 2019-09-12 13:42 | NUR ---
LAB AT BEDSIDE.
--- NOTE | 2019-09-12 13:45 | NUR ---
BREATHING TX IN PROGRESS.
--- NOTE | 2019-09-12 13:50 | NUR ---
XRAY AT BEDSIDE.
[2019-09-12 13:57] LABS: BASOPHIL % 0.4 % (0-2)
[2019-09-12 14:03] LABS: RED CELL DISTRIBUTION WIDTH 15.9 % (11.5-14.5)
[2019-09-12 14:05] LABS: PLATELET COUNT 773 x10^3mcL (130-400)
[2019-09-12 14:06] LABS: CALCIUM 9.4 mg/dL (8.5-10.1); CARBON DIOXIDE 26.5 mmol/L (21-32); CHLORIDE SERUM 97 mmol/L (98-107); CREATININE SERUM 0.7 mg/dL (0.7-1.3); GFR1 > 60 mL/min; GLUCOSE SERUM 104 mg/dL (74-106); POTASSIUM SERUM 4.2 mmol/L (3.5-5.1); SODIUM SERUM 136 mmol/L (136-145)
--- NOTE | 2019-09-12 14:11 | NUR ---
PT RESTING ON ED GURNEY, ON FULL CM, ISABEL RAILS RAISED FOR SAFETY, IN POSITION OF COMFORT, CALL LIGHT WITHIN REACH.
[2019-09-12 14:16] LABS: ALKALINE PHOSPHATASE 226 U/L (46-116); ALT/SGPT 71 U/L (16-63); AST/SGOT 34 U/L (15-37); BILIRUBIN TOTAL 0.3 mg/dL (0.20-1.00)
[2019-09-12 14:18] LABS: ALBUMIN 2.5 g/dL (3.4-5.0); FREE T4 1.26 ng/dL (0.76-1.46); FREE THYROXINE INDEX 3.2 ug/dL (1.4-4.5); T4(THYROXINE) 8.3 ug/dL (4.7-13.3); TOTAL PROTEIN, SERUM 8.8 g/dL (6.4-8.2)
[2019-09-12 14:19] LABS: C REACTIVE PROTEIN 20.9 mg/dL (<=0.9)
[2019-09-12 14:32] LABS: T3 TOTAL 0.75 ng/mL
--- NOTE | 2019-09-12 14:45 | NUR ---
PT MEDICATED PER EMAR. IN POSITION OF COMFORT, ON FULL CM, CALL LIGHT WITHIN REACH. BILAT RAILS RAISED FOR SAFETY.
--- NOTE | 2019-09-12 14:47 | NUR ---
PT STATES HE WILL PROVIDE URINE "LATER", URINAL LEFT AT BEDSIDE, PT EDUCATED ON HOW TO USE URINAL, VERBALIZED UNDERSTANDING.
[2019-09-12 15:14] LABS: CK-MB 0.8 ng/mL (0-3.6); ERYTHROCYTE SED RATE 101 mm/hr (0-20)
--- NOTE | 2019-09-12 16:03 | NUR ---
PT ASSISTED TO RESTROOM VIA WHEELCHAIR, I REMAINED ON STANDBY. PT TOLERATED WELL.
[2019-09-12 16:13] LABS: UA SPECIFIC GRAVITY >=1.030 (1.005-1.035); microscopic required? YES; urine erythrocyte TRACE (NEGATIVE)
--- NOTE | 2019-09-12 16:27 | NUR ---
REPORT GIVEN TO ANATOLY WESTFALL TO ASSUME CARE OF PT. PER KHOI, HOLD PT IN ED FOR "ABOUT 25 MINS, THE ROOM IS STILL BEING CLEANED".
[2019-09-12 17:15] VITALS: BP 126/78
[2019-09-12 17:19] VITALS: BP 126/78
--- NOTE | 2019-09-12 17:20 | NUR ---
RECEIVED PT FROM ED VIA ANTONIO. ORIENTED PT TO ROOM AND SURROUNDINGS. IV NOTED TO LAC PATENT AND INTACT. TELE 11 PLACED ON PT READING STA. INSTRUCTED PT ON THE USE OF CALL LIGHT FOR ASSISTANCE. ENDORSED PT TO PRIMARY NURSE RODRIGUEZ
--- NOTE | 2019-09-12 17:44 | NUR ---
PATIENT AWAKE AND ALERT LAYING IN BED. COMPLAINING OF 10/10 PAIN TO CHEST AND BACK. ADMINSITERED DILAUDID PO PER ORDER.
--- NOTE | 2019-09-12 18:52 | NUR ---
PATIENT SLEEPING AT THIS TIME. SUPINE, BREATHING REGULAR AND UNLABORED, NO DISTRESSED NOTED. CALL LIGHT WIHIN REACH, WILL ENDORSE TO SENIOR MARKETING MANAGER
--- NOTE | 2019-09-12 19:25 | NUR ---
PT RECEIVED A/O X4, ABLE TO MAKE NEEDS KNOWN. TELE #11, PT DENIES HAVING ANY CP/PRESSURE. PULSES PALPABLE, NO EDEMA PRESENT. BREATHING IS EVEN AND UNLABORED ON 2L NC, NO RESP DISTRESS NOTED, PT HAS HX OF LUNG CA. ABD SOFT AND NONDISTENDED, DENIES N/V. VOIDS FREELY. MILD GENERALIZED WEAKNESS. SKIN IS WARM AND DRY, INTACT. PT DENIES HAVING ANY PAIN AT THIS TIME. IV TO LAC INTACT. NO ACUTE DISTRESS NOTED. BED IN LOWEST SETTING, SIDE RAILS UP X2, CALL LIGHT WITHIN REACH. WILL CONT TO MONITOR.
[2019-09-12 20:24] VITALS: BP 106/67
--- NOTE | 2019-09-12 21:20 | NUR ---
PT C/O 10/10 CHEST AND BACK PAIN, PRN DILAUDID PO GIVEN ORDERED. NO ACUTE DISTRESS NOTED. WILL CONT TO MONITOR.
--- NOTE | 2019-09-13 01:30 | NUR ---
PT RESTING IN BED, AWAKE AND ALERT. BREATHING IS EVEN AND UNLABORED ON 2L NC, NO RESP DISTRESS NOTED. PT C/O 10/10 CHEST AND BACK PAIN, PRN DILAUDID PO GIVEN PER EMAR. NO ACUTE DISTRESS NOTED. HOB ELEVATED. CALL LIGHT WITHIN REACH. WILL CONT TO MONITOR.
--- NOTE | 2019-09-13 05:32 | NUR ---
PT SLEPT WELL AT INTERVALS THROUGHOUT THE EVENING. BREATHING IS EVEN AND UNLABORED ON 2L NC WITH NONPRODUCTIVE COUGH NOTED, NO RESP DISTRESS NOTED. HOB ELEVATED. PT REPORTS 10/10 CHEST AND BACK PAIN, PRN DILAUDID PO GIVEN ORDERED. NO ACUTE CHANGES ENCOUNTERED DURING SHIFT. ALL NEEDS MET AND ANTICIPATED. PT COMPLIANT WITH NURSING CARE. IV TO LAC INTACT, SITE WNL. CALL LIGHT WITHIN REACH. WILL ENDORSE CARE TO AM NURSE.
[2019-09-13 06:07] VITALS: BP 120/77
--- NOTE | 2019-09-13 09:10 | NUR ---
RECIEVED PT RESTING IN BED WITH NO APPARENT DISTRESS. A/O X4. TELE #11 CONNECTED TO PT, DENIES ANY CP OR PRESSURE. 2 LPM O2 NC, NO SOB NOTED. LAC IV INTACT AND PATENT WITH NO REDNESS OR INFLAMMATION. SAFETY PRECAUTIONS IN PLACE, CALL LIGHT WITHIN REACH, WILL MONITOR.
--- NOTE | 2019-09-13 09:18 | NUR ---
DILAUDID GIVEN PER EMAR FOR C/O BACK PAIN, WILL REASSESS.
[2019-09-13 09:23] VITALS: BP 110/75
--- NOTE | 2019-09-13 12:25 | NUR ---
VERBAL ORDER RECIEVED FROM DR CHURCHILL FOR DILAUDID 1MG IV Q4 HOURS PRN FOR SEVERE PAIN. REPEATED ORDER BACK AND CARRIED OUT.
--- NOTE | 2019-09-13 12:33 | NUR ---
DILAUDID 1MG IV GIVEN PER EMAR FOR C/O 10/10 BREAKTHROUGH PAIN, WILL REASSESS.
[2019-09-13 12:40] LABS: CALCIUM 9.1 mg/dL (8.5-10.1); CARBON DIOXIDE 30.4 mmol/L (21-32); CHLORIDE SERUM 99 mmol/L (98-107); CREATININE SERUM 0.6 mg/dL (0.7-1.3); GFR1 > 60 mL/min; GLUCOSE SERUM 91 mg/dL (74-106); POTASSIUM SERUM 3.7 mmol/L (3.5-5.1); SODIUM SERUM 136 mmol/L (136-145)
[2019-09-13 12:44] LABS: BASOPHIL % 0.6 % (0-2); RED CELL DISTRIBUTION WIDTH 15.9 % (11.5-14.5)
[2019-09-13 12:46] LABS: PLATELET COUNT 693 x10^3mcL (130-400)
[2019-09-13 12:53] VITALS: BP 105/73
--- NOTE | 2019-09-13 14:53 | NUR ---
DILAUDED PO GIVEN PER EMAR FOR C/O SEVERE PAIN, WILL REASSESS.
--- NOTE | 2019-09-13 16:47 | NUR ---
DILAUDID IV GIVEN PER EMAR FOR C/O 9/10 BODY PAIN, WILL REASSESS.
[2019-09-13 17:14] VITALS: BP 106/72
--- NOTE | 2019-09-13 18:43 | NUR ---
PT STABLE AT THIS TIME WITH NO DISTRESS NOTED. A/O X4 WITH NO MARTE OR DIZZINESS. PT CONNECTED TO TELE# 11, DENIES ANY CP OR PRESSURE. PT ON 2 LPM O2 NC. NO SOB NOTED. LAC INTACT AND PATENT WITH NO REDNESS OR INFLAMMATION NOTED. SAFETY PRECAUTIONS IN PLACE, CALL LIGHT WITHIN REACH, WILL ENDORSE TO NIGHT NURSE.
--- NOTE | 2019-09-13 20:20 | NUR ---
Awake and verbally responsive. No respiratory distress noted on 02 2lpm via n/c. Congestion noted and coughing up secretion. Medicated as ordered for c/o generalized body pain. Ambulating at this time in the room. Will cont.to monitor. Call light within reach.
[2019-09-13 20:36] VITALS: BP 108/72
--- NOTE | 2019-09-14 04:14 | NUR ---
Afebrile. No significant change in condition noted. Pain managed with dilaudid po or IV as ordered. Received breathing treatments. Ambulated. In no apparent distress.
[2019-09-14 05:13] VITALS: BP 116/81
--- NOTE | 2019-09-14 07:30 | NUR ---
RECEIVED REPORT FROM NIGHT SHIFTY NURSE PATIENT LYING IN BED A&O X4, DENIES SOB AT THIS TIME PRODUCTIVE COUGHT NOTED. EXPIRATORY WHEEZES HEARD AND COARSE CRACKLES HEARD IN LUNGS PATIENT ON 2L NC 99% NO S/S OF ACUTE RESPIRATORY DISTRESS NOTED. PATIENT STATED PAIN 10/10 IN BACK PAIN MED NOT DUE YET PATIENT VERBALIZED UNDERSTANDING. OFFERED REPOSITIONING AND RELAXATION, DIMMED LIGHTS FOR COMFORT. PATIENT DENIES ANY CHEST PAIN AT THIS TIME. IV ON LAC PATENT AND INTACT. ALL QUESTIONS AND CONCERNS ADDRESSED AT THIS TIME. BED IN LOWEST POSITION CALL LIGHT WITHIN REACH. WILL CONTINUE TO MONITOR.
[2019-09-14 08:14] VITALS: BP 120/77
--- NOTE | 2019-09-14 09:17 | NUR ---
ADMINISTERED DILAUDID 2 TAB PO FOR SEVERE PAIN 10/10 IN BACK PATIENT TOLERATED WELL. NO ADVERSE REACTIONS NOTED. ALL NEEDS ATTENDED TO AT THIS TIME. WILL CONTINUE TO MONITOR. SAFETY PRECAUTIONS IN PLACE.
--- NOTE | 2019-09-14 10:19 | NUR ---
PATIENT LYING IN BED WITH EYES CLOSED IN NO APARENT DISTRESS. ALL NEEDS ATTENDED TO AT THIS TIME. BED IN LOWEST POSTION CALL LIGHT WITHIN REACH. WILL CONTINUE TO MONITOR.
--- NOTE | 2019-09-14 11:21 | NUR ---
Initial Nutrition Assessment: Luiz Lazo Shukrireno Valera 207T-B Dx: L PNA, Pleural effusion and lung cancer PMHx: DN, HTN, Stage 4 lung cancer with spinal mets PSHx: none noted Labs: 09/13: H/H:9.7/30L Meds: Ambein, Aspirin, Cozaar, Dilauded, Neurontin, Nitrostat, Tylenol and Zofran Diet: [facility] PO Intakes: 09/12: D:40% 09/13: B:100% L:100% D:100% 09/14: B:100% Ht: 66in, 5'6" Wt:97#, 44.027kg BMI: 15.7kg/m2 (underweight) IBW: 142#, 65kg %IBW:68% UBW: unable to obtain Age: 59 y/o male Food Allergies: NKFA Skin: intact Andrea: 22 Edema: None GI: active bowel sounds Last BM:09/13 Per H&P, workup was done in the ER, which showed large left hemothoraz opacifications with a left mediastinal mass. Per Dr. Mason, pallative support care and end of life care is very appropriate, pt accepted. During visit, pt was asleep. Per RN note, pt with severe pain 10/[address] will add ONS for weight gain and will follow up. Nursing Trigger: Appears underweight/malnourished Problem with: N/V/D/C: No Problems with: Chewing: Swallowing: No Current appetite: good Recent wt changes: 2# wt loss since last admit on 08/27/19 %wt change: 2% Vitamin/Supplement: No Special Diet at Home: Regular Physical activity: No Education: N/A Estimated Nutritional Needs Based on actual body weight of 44 kg. Energy: 0688-1455 kcal/d (30-35 kcal/kg for cancer and underweight) Protein: 53-62 gm/d (1.2-1.4 gm/kg for cancer and underweight) Fluid: 3394-3785 mL/d (1 mL/kcal) or per MD. Nutrition Diagnosis 1. Increased nutrient needs related to increased metabolic needs as evidenced by pt with Stage 4 lung cancer with spinal mets. Intervention 1. Recommend adding Glucerna TID due to pt underweight to [facility] diet. Monitor/Evaluate Goal: PO intake to continue to meet 75% estimated needs and gradual weight gain Monitor: PO intakes ,Labs, GI function, Skin integrity, Weights. F/U in 3-5 days as moderate risk 09/17-09/19
--- NOTE | 2019-09-14 11:22 | NUR ---
1. Recommend adding Glucerna TID due to pt underweight to [facility] diet.
--- NOTE | 2019-09-14 11:52 | NUR ---
DR CHURCHILL AT BEDSIDE UPDATING PATIENT AND SISTER ON CARE WILL FOLLOW UP WITH ORDERS REQUESTED.
[2019-09-14 12:18] VITALS: BP 115/77
--- NOTE | 2019-09-14 14:00 | NUR ---
PER DR CHURCHILL PATIENT TO BE DC HOME WITH HOSPICE SERVICES. PER DR CHURCHILL [facility] WAS NOTIFIED. SLAVA FROM [facility] CALLED AND REQUESTED INFORMATION TO BE FAXED: H&P AND MEDICATIONS LIST. [employer] COLLECTION SYSTEM OPERATOR MADE AWARE ABOUT DR CHURCHILL ORDER FOR HOSPICE CONSULT AND EVAL AND THAT [facility] WAS NOTIFIED BY DR CHURCHILL. PER ANA -[employer]LE[employer] OPERATOR OK TO FAX INFORMATION TO [facility]. ATTENDING NURSE NENA AWARE.
--- NOTE | 2019-09-14 14:00 | NUR ---
PER DR CHURCHILL PATIENT TO BE DC HOME WITH HOSPICE SERVICES. PER DR CHURCHILL [facility] WAS NOTIFIED. SLAVA FROM [facility] CALLED AND REQUESTED INFORMATION TO BE FAXED: H&P AND MEDICATIONS LIST. BEVEL FACE STONER AND POLISHER MADE AWARE ABOUT DR CHURCHILL ORDER FOR HOSPICE CONSULT AND EVAL AND THAT [facility] WAS NOTIFIED BY DR CHURCHILL. PER ANA -BEVEL FACE STONER AND POLISHER OK TO FAX INFORMATION TO [facility]. ATTENDING NURSE NENA AWARE.
--- NOTE | 2019-09-14 14:02 | NUR ---
PATIENT C/O PAIN 9/10 IN BACK ADMINISTERED DILAUDID PO PER DEC FOR SEVERE PAIN. PATIENT TOLERATED WELL NO ADVERSE REACTIONS NOTED. DIMMED LIGHTS FOR PATIENT COMFORT. ALL NEED ATTENDED TO AT THIS TIME. BED INLOWEST POSITION CALL LIGHT WITHIN REACH. WILL CONTINUE TO MONITOR.
--- NOTE | 2019-09-14 15:25 | NUR ---
DISCHARGED INSTRUCTIONS GIVEN , IV D/C'D CATHETER INTACT DRESSING APPLIED. PATIENT VERBALIZED UNDERSTANDING. [facility] FROM [place] TO TRANSFER HIM HOME HIS MOM WAITING AT HOME FOR HIM. PATIENT V/S STABLE AWAKE AND ALERT.PATIENT DENIES ANY PAIN AT THIS TIME. PATIENT ON 2 L NC DENIES SOB. REPORT GIVEN TO [facility]. ALL QUESTIONS AND CONCERNS ADDRESSED. ALL PERSONAL BELONGINGS TAKEN WITH PATIENT.
== END 2019-09-14 15:33 | disposition hospice, home (50) | DRG 180 ==
LOC: ED 12:46 → DU 15:46
PROVIDERS: Specialist; ADMIT Internal Medicine Pulmonary Disease
DX: C34.92 Malignant neoplasm of unspecified part of left bronchus or lung (principal); J96.01 Acute respiratory failure with hypoxia; E43 Unspecified severe protein-calorie malnutrition; C79.51 Secondary malignant neoplasm of bone; Z68.1 Body mass index [BMI] 19.9 or less, adult; E11.9 Type 2 diabetes mellitus without complications; I10 Essential (primary) hypertension; E78.00 Pure hypercholesterolemia, unspecified; J44.9 Chronic obstructive pulmonary disease, unspecified; M10.9 Gout, unspecified; N40.0 Benign prostatic hyperplasia without lower urinary tract symptoms; Z99.81 Dependence on supplemental oxygen; Z87.891 Personal history of nicotine dependence; Z79.899 Other long term (current) drug therapy
CPT/HCPCS: 36600; 84439; 87804; G0378; J1170; J1644; J1885; J2543; J7613; J7620; J7644; Q0092